=== PATIENT | female | born 2000 | race Caucasian/White ===

== ENCOUNTER 2024-06-18 16:40 | Emergency (ER) | payer OTHER, SELFPAY ==
[2024-06-18 17:17] VITALS: BP 125/74; PULSE 97; RESP 16; TEMP 36.4; O2SAT 98
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
[2024-06-18] MEDS: KETOROLAC 30 MG/ML VIAL (*BKC) 15 MG IM (18:13)
[2024-06-18 18:29] VITALS: BP 114/80; PULSE 86; RESP 15; TEMP 37.1; O2SAT 100
== END 2024-06-18 18:40 | disposition home or self-care (01) ==
LOC: ANHED 18:34
PROVIDERS: Emergency Provider Student in an Organized Health Care Education/Training Program; PCP Nurse Practitioner Family
DX: S19.9XXA Unspecified injury of neck, initial encounter (principal); M25.512 Pain in left shoulder; M25.511 Pain in right shoulder; R00.0 Tachycardia, unspecified; Z79.899 Other long term (current) drug therapy; V49.40XA Driver injured in collision with unspecified motor vehicles in traffic accident, initial encounter
CPT/HCPCS: 96372; 99283; J1885